=== PATIENT | female | born 1955 | race Caucasian/White ===

== ENCOUNTER 2017-12-11 08:13 | Emergency (ER) | payer MEDICARE ==
[~2017-12-11] VITALS: Ht 170.2 cm; Wt 61.0 kg
[~2017-12-11 08:13] MED LIST: ALENDRONATE10 MG PO; AMLODIPINE5 MG PO; CALCIUM500 MG/D PO; D31000 UNIT PO; FOSAMAX PLUS PO; LORTAB 5/3255 MG PO; MULTI VIT PO; NEORAL100 MG PO; SERTRALINE50 MG PO; XANAX0.5 MG PO
[2017-12-11] MEDS ORDERED: GABAPENTIN100 MG PO (08:32)
[2017-12-11] MEDS ORDERED: ADDERALL XR25 MG PO (08:33)
[2017-12-11] MEDS ORDERED: BUPROPION HCL300 MG PO (08:33)
[2017-12-11] MEDS ORDERED: CELLCEPT250 MG PO (08:34)
[2017-12-11] MEDS ORDERED: DEBROX6.5 % AS (08:45)
[2017-12-11 08:47] VITALS: BP 136/83
== END 2017-12-11 08:50 | disposition home or self-care (01) ==
LOC: ED 08:13
PROC: 09C47ZZ Extirpation of Matter from Left External Auditory Canal, Via Natural or Artificial Opening (ICD-10-PCS; principal; 2017-12-11)
DX: H61.22 Impacted cerumen, left ear (principal); F41.9 Anxiety disorder, unspecified; F32.9 Major depressive disorder, single episode, unspecified; Z86.19 Personal history of other infectious and parasitic diseases